=== PATIENT | male | born 1995 | race Two or more races ===

== ENCOUNTER 2017-02-15 13:19 | Emergency (ER) | payer OTHER, MEDICAID ==
[~2017-02-15] VITALS: Ht 175.3 cm; Wt 99.8 kg
[2017-02-15 14:35] VITALS: BP 124/70
[2017-02-15] MEDS ORDERED: cefTRIAXone SOD 1,000 MG VL IM ONE (15:45)
== END 2017-02-15 16:14 | disposition home or self-care (01) ==
LOC: ER 13:19
DX: J18.9 Pneumonia, unspecified organism (principal); J03.90 Acute tonsillitis, unspecified
CPT/HCPCS: 71020; 93005; 96372; 99284; J0696

== ENCOUNTER 2017-02-18 13:58 | Emergency (ER) | payer OTHER, MEDICAID ==
[~2017-02-18] VITALS: Ht 175.3 cm; Wt 99.8 kg
[2017-02-18 14:30] VITALS: BP 129/68
== END 2017-02-18 16:14 | disposition home or self-care (01) ==
LOC: ER 13:58
DX: J18.9 Pneumonia, unspecified organism (principal)
CPT/HCPCS: 71020